=== PATIENT | female | born 1925 | race Caucasian/White ===

== ENCOUNTER → 2016-12-02 | Outpatient (CLI) | payer MEDICARE, BC ==
[~2016-12-02] MED LIST: BIMA2.5D OP; OMEP20CA9 PO; TIMO5DRO26 OU
--- NOTE | 2016-12-02 16:17 | KCIC ---
Left breast digital screening mammograms with CAD: HISTORY Routine screening. History of right breast cancer with mastectomy 15 years ago. COMPARISON New baseline. No previous films available for comparison. FINDINGS Breast density category C. The skin and nipple show no abnormalities. No abnormal lymph nodes are seen in the axilla. The breast parenchyma shows heterogeneous density. There is a 1.3 centimeter nodular lesion in the 4 o'clock position posteriorly with no associated calcifications. Further evaluation with ultrasound is recommended. There are no other dominant masses, suspicious calcifications or architectural distortions. Benign appearing calcifications are present. IMPRESSION 1.3 centimeter nodule at the 4 o'clock position posteriorly. Recommend further evaluation with ultrasound. This study was interpreted with the benefit of Computerized Aided Detection (CAD). Mammography is not 100% sensitive in detecting breast cancer. Therefore, a self breast exam and a clinical breast exam are very important. A negative mammogram does not negate a clinically suspicious finding and should not result in a delay in biopsying a clinically suspicious abnormality. BI-RADS category 0: Incomplete. Ultrasound followup is recommended. This patient's information has been entered into a reminder system for the patient to be notified with the results of this examination and a target date for her next mammograms. Electronically signed by: Pascale Chapman MD (Dec 02, 2016 16:14:31)
== END | disposition home or self-care (01) ==
LOC: KCIC MAMMO 13:11
PROVIDERS: ATTEND Internal Medicine
DX: Z12.31 Encounter for screening mammogram for malignant neoplasm of breast (principal)
CPT/HCPCS: 77052; G0202; 77067

== ENCOUNTER → 2016-12-10 | Outpatient (CLI) | payer MEDICARE, BC ==
--- NOTE | 2016-12-10 12:25 | RAD ---
Left breast ultrasound, 12/10/2016: History: Suspicious mammogram Recent mammography demonstrated a small nodule in the posterior aspect of the left breast at the 4:00 location. A targeted ultrasound exam of that region was performed. There is a 10 x 7 x 8 mm smooth anechoic nodule at the 4:00 location, approximately 6 cm from the nipple. It demonstrates posterior acoustic enhancement. This has the appearance of a cyst. It probably corresponds to the mammographic finding, although that cannot be stated with certainty. More centrally in the left breast there are dilated ducts in the retroareolar region. At the 4:00 location, approximately 1 cm from the nipple, there is medium density material within one of these dilated ducts. This material demonstrates a branching configuration. There appears to be calcification within this process. This may represent an intraductal mass or inspissated debris. No definite color flow was appreciated. IMPRESSION: 1. Simple cyst at the 4:00 location in the left breast which probably corresponds to the mammographic abnormality. 2. Abnormal densities within a dilated duct more centrally at the 4:00 location as described above. Ultrasound-guided biopsy is suggested for further evaluation. BI-RADS 4-suspicious abnormality Note: The patient was notified of this recommendation for biopsy at the time of the exam.
== END | disposition home or self-care (01) ==
LOC: KCIC US 11:28
PROVIDERS: ATTEND Internal Medicine
DX: R92.8 Other abnormal and inconclusive findings on diagnostic imaging of breast (principal)
CPT/HCPCS: 76641

== ENCOUNTER → 2016-12-24 | Outpatient (CLI) | payer MEDICARE, BC ==
[~2016-12-24] VITALS: Ht 172.7 cm; Wt 68.0 kg
[~2016-12-24] MED LIST changes: +LIDOCAINE 2%/EPI 1:100,000 20 ML VIAL. IJ ONE
[2016-12-24 09:59] VITALS: BP 116/59
--- NOTE | 2016-12-29 17:11 | PATHOLOGY ---
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 See comment. - Few microcalcifications identified within papilloma. - Fibrocystic changes. COMMENT: Sections of the left breast mass needle biopsy reveal fibrocystic changes and an intraductal papilloma. The papilloma shows a focal atypical ductal epithelial proliferation appearing to measure approximately 3 mm in greatest extent. An immunoperoxidase stain for CK5/6 is obtained and yields the following results: CK5/6 (A1): atypical epithelial proliferation is largely negative with absence of a mosaic pattern of epithelial positivity; positive staining of surrounding myoepithelial cells. 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 There are a few calcifications within the papilloma. There is no evidence of malignancy. The case is also examined by Dr. Melvi Lemus, who concurs with the diagnosis. (JPM:[email or web address]; d/t: 12/29/16) Special Stain Performed: Immunoperoxidase stain for CK5/6. REPORT ELECTRONICALLY SIGNED BY: Santino Argueta M.D. DATE/TIME: 12/29/2016 17:10 * * * * * * * * GROSS PATHOLOGY: Received in formalin labeled "[place], left breast mass," are multiple needle cores of yellow-castillo fibrofatty tissue measuring 2.2 x 1.8 x 0.2 cm in aggregate dimensions. The tissue is submitted in its entirety in cassette A1. The cold ischemic time is 5 minutes. The total formalin fixation time is 29 hours. (SNA; 12/25/2016) INITIAL CPT CODE(S): A; 44237, 40047 Professional services performed by [facility] at [place] [id number] [place] [address] Technical services performed by [facility] at [address] [place] [address], [address], [place] [address]. SPECIMEN(S) RECEIVED: A.Left breast mass CLINICAL HISTORY: Left breast mass PATIENT: NASRIN EAST V /AGE: 210/16/1925 (Age: 89) PATIENT #: [id number] ALT CASE #: SPECIMEN COLLECTION DATE: 12/24/2016 SPECIMEN RECEIVED DATE: 12/24/2016 [facility] - [id number] [address] - PHONE: [phone] * * * END OF REPORT * * *
--- NOTE | 2017-01-04 10:11 | RAD ---
Ultrasound-guided vacuum-assisted left breast biopsy, 12/24/2016: History: Suspicious breast lesion A previous ultrasound study demonstrated an abnormal process at the 3-4:00 location near the nipple. Under local anesthesia, aseptic conditions and sonographic guidance the [employer] biopsy instrument was passed into this area via a lateral approach. Multiple 12-gauge vacuum-assisted core samples were obtained. A biopsy marker was then deposited at the biopsy site. The biopsy instrument was then removed and hemostasis obtained. Two-view postprocedural mammograms were then performed to document position of the biopsy marker. The patient tolerated the procedure well and left the department in good condition. The subsequent pathology report indicated the presence of an intraductal papilloma with atypical ductal epithelial hyperplasia. The presence of atypical ductal hyperplasia is typically an indication for excisional biopsy. Surgical consultation is suggested. Also, 6 month imaging follow-up of the presumed separate left breast cyst is suggested to confirm stability. Note: The findings were discussed with Dr. Rascon at 10:05 AM on 01/04/2017.
== END | disposition home or self-care (01) ==
LOC: US 09:13
PROVIDERS: ATTEND Internal Medicine
DX: N63 Unspecified lump in breast (principal)
CPT/HCPCS: 19081; 76942; C1713; G0206; 88305; 88342; 77065; G0641